=== PATIENT | male | born 2000 | race African-American/Black ===

== ENCOUNTER 2022-04-11 09:41 | Emergency (ER) | payer OTHER ==
[2022-04-11 09:57] VITALS: BP 153/56; PULSE 90; RESP 18; TEMP 98.7; BMI 23.2
[2022-04-11] MEDS ORDERED: ONDANSETRON *ODT* 4 MG TABLET SL ONE (10:19)
[2022-04-11] MEDS ORDERED: ONDANSETRON *ODT* 4 MG TABLET ONE (10:25)
[2022-04-11 12:02] LABS: EPI CELLS 10 /uL (0-25.1); HYALINE CASTS 8 /uL (0-3.1); PH,URINE 5.5 (5.0-8.0); URINE APPEARANCE TURBID; URINE BACTERIA 70 /uL (0-1359); URINE BILIRUBIN 2+ (NEGATIVE); URINE COLOR DK YELLOW; URINE GLUCOSE (UA) NEGATIVE (NEGATIVE); URINE KETONE 1+ (NEGATIVE); URINE LEUK ESTERASE 2+ (NEGATIVE); URINE NITRITE NEGATIVE (NEGATIVE); URINE PROTEIN 2+ (NEGATIVE); URINE RBC 78 /uL (0-23.9); URINE WBC 6177 /uL (0-25.8)
== END 2022-04-11 11:31 | disposition home or self-care (01) ==
LOC: JERFT 09:41 → JER 09:41 → JERFT 11:31
DX: Z11.3 Encounter for screening for infections with a predominantly sexual mode of transmission (principal)
CPT/HCPCS: 36415; 81003; 87086; 87491; 87591; 87661; 99284-25; Q0162